=== PATIENT | female | born 1995 | race Caucasian/White ===

== ENCOUNTER 2017-06-30 16:27 | Emergency (ER) | payer MEDICAID ==
[2017-06-30 17:37] LABS: ADD UMIC NO; UR ASCORBIC ACID NEGATIVE (NEGATIVE); UR BILIRUBIN (Dip) NEGATIVE (NEGATIVE); UR BLOOD (Dip) NEGATIVE (NEGATIVE); UR CLARITY CLEAR (CLEAR); UR COLOR YELLOW (YELLOW); UR GLUCOSE (Dip) NEGATIVE (NEGATIVE); UR KETONES (Dip) NEGATIVE (NEGATIVE); UR LEUKOCYTE ESTERASE (Dip) NEGATIVE Leu/ul (NEGATIVE); UR NITRITE (Dip) NEGATIVE (NEGATIVE); UR SPECIFIC GRAVITY (Dip) 1.006 (1.003-1.030); UR TOTAL PROTEIN (Dip) NEGATIVE (NEGATIVE); UR UROBILINOGEN (Dip) NEGATIVE (NEGATIVE)
== END 2017-06-30 17:50 | disposition home or self-care (01) ==
LOC: FTE 16:27
DX: O99.89 Other specified diseases and conditions complicating pregnancy, childbirth and the puerperium (principal); M54.5 Low back pain; Z3A.16 16 weeks gestation of pregnancy
CPT/HCPCS: 76805; 81003; 99284-25

== ENCOUNTER 2017-11-29 08:16 | Inpatient (IN) | payer MEDICAID ==
[2017-11-29] MEDS ORDERED: METHYLERGONOVINE 0.2 MG INJ IM ×2 (09:00→14:00)
[2017-11-29] MEDS ORDERED: CARBOPROST 250 MCG INJ IM ×2 (09:00→14:00)
[2017-11-29] MEDS ORDERED: MISOPROSTOL 200 MCG TAB PR ×2 (09:00→14:00)
[2017-11-29] MEDS ORDERED: OXYTOCIN 30 UNITS/LR 500 ML IV ×3 (09:00→14:00)
[2017-11-29 09:11] LABS: ADD MAN DIFF? NO
[2017-11-29 09:12] LABS: BASOPHILS % 0.3 % (0.0-2.0); EOSINOPHILS # 0.1 10^3/ul (0.0-0.5); EOSINOPHILS % 0.7 % (0.0-7.0); HEMATOCRIT 36.8 % (37.0-47.0); HEMOGLOBIN 12.9 g/dl (12.0-16.0); LYMPHOCYTES # 1.6 10^3/ul (0.8-2.9); LYMPHOCYTES % 16.3 % (15.0-51.0); MEAN CORPUSCULAR HGB CONC 35.1 g/dl (32.0-37.0); MEAN CORPUSCULAR VOLUME 94.1 fl (82.0-101.0); MEAN PLATELET VOLUME 10.9 fl (7.4-10.4); MONOCYTE # 0.8 10^3/ul (0.3-0.9); NEUTROPHIL # 7.2 10^3/ul (1.6-7.5); NEUTROPHILS % 74.1 % (39.0-77.0); PLATELET COUNT 232 10^3/UL (140-415); RED BLOOD COUNT 3.91 10^6/ul (4.20-5.40); RED CELL DISTRIBUTION WIDTH 13.3 % (11.5-14.5)
[2017-11-29 09:12] LABS: WHITE BLOOD COUNT 9.7 10^3/ul (4.8-10.8)
[2017-11-29] MEDS: LACTATED RINGER'S 1,000 ML IV ×4 (09:13→21:59)
[2017-11-29] MEDS ORDERED: CITRIC ACID/NA CITRATE 30 ML CUP (09:23)
[2017-11-29 09:31] LABS: INR 0.93; PROTIME 12.5 Sec (11.9-14.9)
[2017-11-29 09:32] LABS: PARTIAL THROMBOPLASTIN TIME 27.3 Sec (23.0-35.0)
[2017-11-29] MEDS: CITRIC ACID/NA CITRATE 30 ML CUP PO (09:36)
[2017-11-29] MEDS ORDERED: morphine SULFATE/PF (10 MG/10 ML) INJ (09:53)
[2017-11-29] MEDS ORDERED: KETOROLAC 30 MG INJ (10:02)
[2017-11-29] MEDS ORDERED: METOCLOPRAMIDE 10 MG INJ (10:02)
[2017-11-29] MEDS ORDERED: ONDANSETRON 4 MG INJ (10:02)
[2017-11-29 10:09] LABS: HEPATITIS B SURFACE ANTIGEN NEGATIVE (NEGATIVE)
[2017-11-29] MEDS ORDERED: PHENYLephrine (100 MCG/ML) 5ML SYG (10:29)
[2017-11-29] MEDS ORDERED: ONDANSETRON 4 MG INJ IV (11:00)
[2017-11-29] MEDS ORDERED: DIPHENHYDRAMINE 50 MG INJ IV ×2 (11:00)
[2017-11-29] MEDS ORDERED: morphine (1 MG/ML) 10ML SYRINGE IV ×3 (11:00)
[2017-11-29] MEDS ORDERED: morphine 2 MG INJ IV ×3 (11:00)
[2017-11-29] MEDS ORDERED: NALOXONE (0.4 MG/ML) INJ IV (11:00)
[2017-11-29] MEDS: OXYTOCIN 30 UNITS/LR 500 ML IV ×2 (11:30→16:02)
[2017-11-29] MEDS: CEFAZOLIN 2 GM/50 ML (PMX) 50 ML IV (12:40)
[2017-11-29] MEDS ORDERED: NACL 0.9% 3 ML SYG IV (14:00)
[2017-11-29] MEDS ORDERED: NA PHOSPHATE/BIPHOS 133 ML ENEMA PR (14:00)
[2017-11-29] MEDS: LANOLIN 7 GM TUBE TOP (16:01)
[2017-11-29] MEDS: ONDANSETRON 4 MG INJ IV (17:54)
[2017-11-29] MEDS: KETOROLAC 30 MG INJ IV (17:55)
[2017-11-29 21:32] LABS: RAPID PLASMA REAGIN NONREACTIVE (NR)
[2017-11-30] MEDS: LACTATED RINGER'S 1,000 ML IV (01:12)
[2017-11-30] MEDS: IBUPROFEN 800 MG TAB PO ×2 (14:00→22:00)
[2017-11-30 19:12] LABS: ADD MAN DIFF? NO
[2017-11-30 19:14] LABS: WHITE BLOOD COUNT 10.4 10^3/ul (4.8-10.8)
[2017-11-30 19:14] LABS: BASOPHILS % 0.3 % (0.0-2.0); EOSINOPHILS % 0.4 % (0.0-7.0); LYMPHOCYTES # 1.7 10^3/ul (0.8-2.9); LYMPHOCYTES % 15.9 % (15.0-51.0); MEAN CORPUSCULAR HEMOGLOBIN 33.3 pg (29.0-33.0); MEAN CORPUSCULAR HGB CONC 34.4 g/dl (32.0-37.0); MEAN PLATELET VOLUME 10.6 fl (7.4-10.4); MONOCYTE # 0.7 10^3/ul (0.3-0.9); NEUTROPHIL # 7.9 10^3/ul (1.6-7.5); PLATELET COUNT 235 10^3/UL (140-415); RED CELL DISTRIBUTION WIDTH 13.6 % (11.5-14.5)
[2017-11-30] MEDS: HYDROCODONE/APAP (5/325) TAB PO (20:25)
[2017-12-01] MEDS: IBUPROFEN 800 MG TAB PO ×3 (05:41→22:24)
[2017-12-02] MEDS: IBUPROFEN 800 MG TAB PO ×2 (05:35→14:35)
[2017-12-02] MEDS: MEASLES,MUMPS,RUBELLA VACCINE INJ SC* (08:46)
[2017-12-02] MEDS: DIPHTH/TET/ACEL PERTUSS (ADULT) 0.5 ML VIAL IM* (12:39)
== END 2017-12-02 19:00 | disposition home or self-care (01) | DRG 788 ==
LOC: L-D 08:16 → PP1 13:33
PROVIDERS: Obstetrics & Gynecology
PROC: 10D00Z1 Extraction of Products of Conception, Low, Open Approach (ICD-10-PCS; principal; 2017-11-29 10:00)
DX: O34.219 Maternal care for unspecified type scar from previous cesarean delivery (principal); Z37.0 Single live birth; Z3A.39 39 weeks gestation of pregnancy; Z23 Encounter for immunization
CPT/HCPCS: 85025; 85610; 85730; 86592; 86850; 86900; 86901; 87340; 90686; 90715; 99464